=== PATIENT | female | born 1965 | race Caucasian/White ===

== ENCOUNTER 2018-06-22 12:53 | Emergency (ER) | payer OTHER ==
[~2018-06-22] VITALS: Ht 157.5 cm; Wt 79.4 kg
[~2018-06-22 12:53] MED LIST: LISINOPRIL10 MG PO; METOPROLOL; METOPROLOL SUCC25 MG PO; TRAMADOL; ULTRAM50 MG PO; XANAX XR1 MG PO; ZESTORETIC 20-1 EACH PO
[2018-06-22] MEDS ORDERED: LORAZEPAM1 MG PO (13:03)
[2018-06-22] MEDS ORDERED: TIZANIDINE HCL4 MG PO (13:03)
[2018-06-22] MEDS ORDERED: LISINOPRIL-HCT1 EAC1 PO (13:03)
[2018-06-22] MEDS ORDERED: OXYCODONE-ACET1 EAC3 PO (13:03)
[2018-06-22] MEDS ORDERED: GABAPENTIN600 MG PO (13:03)
[2018-06-22] MEDS ORDERED: METOCLOPRAMIDE HCL 10 MG/2ML VIAL IM ONE ×2 (13:15→14:00)
[2018-06-22] MEDS ORDERED: KETOROLAC TROMETHAMINE 60 MG/2 ML VIAL IM ONE ×2 (13:15→14:00)
[2018-06-22] MEDS ORDERED: SODIUM CHLORIDE 0.9% 1000ML 1,000 ML IV SCH (13:15)
[2018-06-22] MEDS ORDERED: KETOROLAC TROMETHAMINE 30 MG/ML VIAL IV ONE (14:00)
[2018-06-22] MEDS ORDERED: METOCLOPRAMIDE HCL 10 MG/2ML VIAL IV ONE (14:00)
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
== END 2018-06-22 14:40 | disposition home or self-care (01) ==
LOC: ER 12:53
DX: R51 Headache (principal); I10 Essential (primary) hypertension; M79.7 Fibromyalgia
CPT/HCPCS: 70450; 99283; J1885; J2765

== ENCOUNTER 2018-08-19 02:44 | Emergency (ER) | payer OTHER ==
[~2018-08-19] VITALS: Ht 157.5 cm; Wt 79.4 kg
[~2018-08-19 02:44] MED LIST changes: +GABAPENTIN600 MG PO; +LISINOPRIL-HCT1 EAC1 PO; +LORAZEPAM1 MG PO; +OXYCODONE-ACET1 EAC3 PO; +TIZANIDINE HCL4 MG PO
--- OUTSIDE RECORDS SUMMARY | 2018-08-19 02:47 | XMS REPORT | Clinical Summary ---
Author Author [facility] Organization [facility] Address Unknown Phone Unavailable Care Team Providers Care Lead Tinner Name Role Phone PCP Unavailable Allergies No Known Allergies Current Medications Prescription Sig. Disp. Refills Start End Date Status Date lisinopril (ZESTRIL) 40 Take 1 tablet by mouth 30 tablet 1 10/28/19 Active mg tabletIndications: daily. 15 Bipolar disorder NIFEdipine (PROCARDIA XL) Take 1 tablet by mouth 30 tablet 1 10/28/19 Active 30 mg extended release daily. 15 tabletIndications: Bipolar disorder haloperidol (HALDOL) 2 mg Take 1 tablet by mouth 30 tablet 2 03/21/20 Active tabletIndications: daily as needed (for 17 Bipolar disorder, in full worsening symptoms.). remission, most recent episode manic haloperidol decanoate 0.25 ml IM every 6 0.25 mL 4 03/20/20 Active (HALDOL DECANOATE) 100 weeks.. 18 mg/mL injectionIndications: Bipolar disorder, in full remission, most recent episode manic haloperidol decanoate 0.25 ml IM every 6 0.25 mL 4 05/02/20 11/14/19 Discontin (HALDOL DECANOATE) 100 weeks.. 17 18 ued mg/mL injectionIndications: Bipolar disorder, in full remission, most recent episode manic haloperidol decanoate 0.25 ml IM every 6 0.25 mL 4 11/14/19 03/20/20 Discontin (HALDOL DECANOATE) 100 weeks.. 18 18 ued mg/mL injectionIndications: Bipolar disorder, in full remission, most recent episode manic Active Problems Problem Noted Date Bipolar disorder 05/12/2015 Encounters Date Type Specialty Care Team Description 07/25/2018 Nurse Only Psychiatry Milli Varner RN Psychiatric disorder (Primary Dx) 06/12/2018 Office Visit Psychiatry Rayshawn Natarajan MD Bipolar disorder, in full remission, most recent episode manic (Primary Dx); Dietary counseling for Above / Below Normal BMI; Exercise counseling for Above Normal BMI Only! 05/02/2018 Nurse Only Psychiatry Rayshawn Natarajan MD Psychiatric problem Julia CherylJAME FlowersN (Primary Dx) 03/20/2018 Office Visit Psychiatry Rayshawn Natarajan MD Bipolar disorder, in full remission, most recent episode manic (Primary Dx); Opioid use disorder, mild, abuse; Mild benzodiazepine use disorder 02/06/2018 Office Visit Psychiatry Rayshawn Natarajan MD Bipolar disorder, in full Salmeron, Ladan Sage MD remission, most recent episode manic (Primary Dx) 12/26/2017 Hospital Lab Rayshawn Natarajan MD Bipolar disorder, in full Encounter remission, most recent episode manic; Hypertriglyceridemia; Type 2 diabetes mellitus without complication, without long-term current use of insulin 12/26/2017 Office Visit Psychiatry Rayshawn Natarajan MD Bipolar disorder, in full remission, most recent episode manic (Primary Dx) 11/14/2017 Office Visit Psychiatry Rayshawn Natarajan MD Hypertriglyceridemia (Primary Dx); Bipolar disorder, in full remission, most recent episode manic; Hyperglycemia; Type 2 diabetes mellitus without complication, without long-term current use of insulin 09/10/2017 Telephone Psychiatry Tomasa Pearce MD Abnormal Labs 09/09/2017 Nurse Only Psychiatry Tomasa Pearce MD Correa, Edgardo, RN 09/09/2017 Hospital Tomasa Pearce MD Encounter 09/09/2017 Hospital Lab Tomasa Pearce MD Encounter after 08/18/2017 Social History Tobacco Use Types Packs/Day Years Used Date Never Assessed Sex Assigned at Date Recorded Not on file Last Filed Vital Signs Vital Sign Reading Time Taken Blood Pressure 127/90 06/12/2018 11:20 AM CDT Pulse 71 06/12/2018 11:20 AM CDT Temperature 36.6 C (97.9 F) 06/12/2018 11:20 AM CDT Respiratory Rate 20 06/12/2018 11:20 AM CDT Oxygen Saturation 98% 06/12/2018 11:20 AM CDT Inhaled Oxygen - - Concentration Weight 85.3 kg (188 lb) 06/12/2018 11:20 AM CDT Height 157.5 cm (5' 2") 06/12/2018 11:20 AM CDT Body Mass Index 34.39 06/12/2018 11:20 AM CDT Plan of Treatment Date Type Specialty Care Team Description 09/04/2018 Office Visit Psychiatry Rayshawn Natarajan MD Injection [address] [place] [address] [phone] Health Maintenance Due Date Last Done Comments DM Foot Exam (Yearly) 01/31/1984 DM Retinal Exam (Yearly) 01/31/1984 Cervical Cancer Scrn (3 1987 Yrs) Breast Cancer Scrn 2006 (Yearly) DM Microalbumin Urine 10/28/2015 10/28/2014 Scrn (Yearly) Colorectal Cancer Scrn 01/31/2016 Annual (FIT/FOBT) Age 50 to 75 IMM Influenza Seasonal 07/21/2018Jul to December (>/=19 yrs) DM HGBA1C (Yearly) 12/26/2018 12/26/2017, 09/09/2017 Procedures Procedure Name Priority Date/Time Associated Diagnosis Comments HEMOGLOBIN A1C Routine 12/26/2017 Type 2 diabetes mellitus Results for this 9:25 AM CHILD DEVELOPMENT CONSULTANT without complication, procedure are in the without long-term current results section. use of insulin Bipolar disorder, in full remission, most recent episode manic Hypertriglyceridemia LIPID PROFILE Routine 12/26/2017 Bipolar disorder, in full Results for this 9:25 AM CHILD DEVELOPMENT CONSULTANT remission, most recent procedure are in the episode manic results section. Hypertriglyceridemia FREE T4 Routine 09/09/2017 Bipolar disorder, in full Results for this 12:25 PM CHILD DEVELOPMENT CONSULTANT remission, most recent procedure are in the episode manic results section. TSH Routine 09/09/2017 Bipolar disorder, in full Results for this 12:25 PM CHILD DEVELOPMENT CONSULTANT remission, most recent procedure are in the episode manic results section. COMPREHENSIVE METABOLIC Routine 09/09/2017 Bipolar disorder, in full Results for this PANEL(DBIL NOT INCLUDED) 12:25 PM CHILD DEVELOPMENT CONSULTANT remission, most recent procedure are in the episode manic results section. CBC/DIFF Routine 09/09/2017 Bipolar disorder, in full Results for this 12:25 PM CHILD DEVELOPMENT CONSULTANT remission, most recent procedure are in the episode manic results section. HEMOGLOBIN A1C Routine 09/09/2017 Bipolar disorder, in full Results for this 12:25 PM CHILD DEVELOPMENT CONSULTANT remission, most recent procedure are in the episode manic results section. LIPID PROFILE Routine 09/09/2017 Bipolar disorder, in full Results for this 12:25 PM CHILD DEVELOPMENT CONSULTANT remission, most recent procedure are in the episode manic results section. 12 LEAD EKG Routine 09/09/2017 Bipolar disorder, in full Results for this 11:23 AM CHILD DEVELOPMENT CONSULTANT remission, most recent procedure are in the episode manic results section. after 08/18/2017 Results * HEMOGLOBIN A1C (12/26/2017 9:25 AM) Only the most recent of 2 results within the time period is included. Hemoglobin A1c 6.1 4.3 - 6.1 % BT DIAGNOSTIC IMMUNOLOGY Est Average Gluc 128.4 mg/dL BT DIAGNOSTIC IMMUNOLOGY Specimen Blood Performing Organization Address [facility] Phone Number MISYS BT DIAGNOSTIC IMMUNOLOGY * LIPID PROFILE (12/26/2017 9:25 AM) Only the most recent of 2 results within the time period is included. Cholesterol 183 mg/dL BT MAIN-STATION 4 Comment: REFERENCE RANGE: Desirable: <200 mg/dL Borderline: 200-240 mg/dL High Risk: >240 mg/dL Triglyceride 413 (H) <150 mg/dL BT MAIN-STATION 4 Comment: REFERENCE RANGE: Normal: <150 mg/dL Borderline High: 150-199 mg/dL High: 200-499 mg/dL Very High: >vj=419 mg/dL HDL 31 mg/dL BT MAIN-STATION 4 Comment: Increased CHD risk: <40 mg/dL Decreased CHD risk: >60 mg/dL LDL Calculated LDL unreliable with mg/dL BT MAIN-STATION 4 levels of Triglyceride above 400 mg/dL Comment: REFERENCE RANGE: Optimal: <100 mg/dL Near Optimal: 100-129 mg/dL Borderline High: 130-159 mg/dL High: 160-189 mg/dL Very High: >uv=607 mg/dL Specimen Blood Performing Organization Address [facility] Phone Number MISYS BT MAIN-STATION 4 * COMPREHENSIVE METABOLIC PANEL(DBIL NOT INCLUDED) (09/09/2017 12:25 PM) Albumin 3.7 3.4 - 5.0 g/dL BT OUTPATIENT DRAW 2 Calcium 8.4 (L) 8.50 - 10.20 mg/dL BT OUTPATIENT DRAW 2 CO2 25.4 21 - 32 mmol/L BT OUTPATIENT DRAW 2 Chloride 105 98 - 107 mmol/L BT OUTPATIENT DRAW 2 Creatinine 0.75 0.60 - 1.30 mg/dL BT OUTPATIENT DRAW 2 Glucose 102 (H) 70 - 99 mg/dL BT OUTPATIENT DRAW 2 Alk Phos 113 45 - 117 U/L BT MAIN-STATION 3 Potassium 4.5 3.50 - 5.10 mmol/L BT OUTPATIENT DRAW 2 Sodium 138 136 - 145 mmol/L BT OUTPATIENT DRAW 2 ALT 50 12 - 78 U/L BT OUTPATIENT DRAW 2 AST 25 15 - 37 U/L BT OUTPATIENT DRAW 2 Urea Nitrogen 9 7 - 18 mg/dL BT OUTPATIENT DRAW 2 T Bilirubin 0.3 0.2 - 1.0 mg/dL BT MAIN-STATION 3 T Protein 6.5 6.4 - 8.2 g/dL BT MAIN-STATION 3 GFR, Estimated >60 mL/min/1.73 m2 BT OUTPATIENT DRAW 2 GFR, Estim, Afr-Am >60 mL/min/1.73 m2 BT OUTPATIENT DRAW 2 Anion Gap 7.6 BT OUTPATIENT DRAW 2 Specimen Blood Performing Organization Address [facility] Phone Number MISYS BT OUTPATIENT DRAW 2 BT MAIN-STATION 3 * TSH (09/09/2017 12:25 PM) TSH 0.89 0.36 - 3.74 uIU/mL BT MAIN-STATION 3 Specimen Blood Performing Organization Address [facility] Phone Number MISYS BT MAIN-STATION 3 * FREE T4 (09/09/2017 12:25 PM) Free T4 1.13 0.89 - 1.76 ng/dl BT MAIN-STATION 4 Specimen Blood Performing Organization Address [facility] Phone Number MISYS BT MAIN-STATION 4 * CBC/DIFF (09/09/2017 12:25 PM) WBC 9.5 4.5 - 11.0 K/uL BT MAIN-STATION 2 RBC 4.16 (L) 4.20 - 5.40 M/uL BT MAIN-STATION 2 Hemoglobin 11.8 (L) 12.0 - 16.0 g/dL BT MAIN-STATION 2 Hematocrit 35.8 (L) 37.0 - 47.0 % BT MAIN-STATION 2 MCV 86 82 - 92 fL BT MAIN-STATION 2 MCH 28.4 27.0 - 32.0 pg BT MAIN-STATION 2 MCHC 33.0 32.0 - 36.0 g/dL BT MAIN-STATION 2 RDW 40.9 36.4 - 46.3 fL BT MAIN-STATION 2 Platelet 241 150 - 400 K/uL BT MAIN-STATION 2 Mean Platelet Volume 10.9 9.4 - 12.4 fL BT MAIN-STATION 2 Percent NRBC 0.0 BT MAIN-STATION 2 Absolute NRBC 0.00 BT MAIN-STATION 2 Neutrophil 60.4 34.0 - 70.0 % BT MAIN-STATION 2 Lymphocyte 30.3 20.0 - 50.0 % BT MAIN-STATION 2 Monocyte 6.3 5.0 - 12.0 % BT MAIN-STATION 2 Eosinophil 2.3 0.7 - 5.0 % BT MAIN-STATION 2 Basophil 0.4 0.1 - 1.2 % BT MAIN-STATION 2 Pct Immat Gran 0.3 0.0 - 0.5 BT MAIN-STATION 2 Neutrophil, Abs 5.72 1.56 - 6.13 K/uL BT MAIN-STATION 2 Lymphocyte, Abs 2.87 1.18 - 3.74 K/uL BT MAIN-STATION 2 Monocyte, Abs 0.60 (H) 0.24 - 0.36 K/uL BT MAIN-STATION 2 Eosinophil, Abs 0.22 0.04 - 0.36 K/uL BT MAIN-STATION 2 Basophil, Abs 0.04 0.01 - 0.08 K/uL BT MAIN-STATION 2 Absol Immat Gran 0.03 0.00 - 0.03 K/uL BT MAIN-STATION 2 Specimen Blood Performing Organization Address [facility] [place] Phone Number MISYS BT MAIN-STATION 2 * 12 LEAD EKG (09/09/2017 11:23 AM) 12 LEAD EKG FOR [facility] Test Date:2017-09-09 Pat Name: TANIYA Flood partment: Room: Gender: F Vice President Of Finance: [id number] :[id number] [id number] Requested By: Order Number: Boy hickman MD: Tomas Wang M.D. Measurements Intervals [place] Rate: 57 P:24 PA: 160 QRS: 37 QRSD: 93 T:49 QT: 427 QTc:418 Interpretive Statements SINUS BRADYCARDIA WARNING: DATA QUALITY MAY AFFECT INTERPRETATION Electronically Signed On 09-09-17 12:31:35 CHILD DEVELOPMENT CONSULTANT by Nasser Lakkis, M.D. Performing Organization Address City/State/Zipcode Phone Number SMS after 08/18/2017
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
--- OUTSIDE RECORDS SUMMARY | 2018-08-19 02:47 | XMS REPORT | Continuity of Care Document ---
Author Author [facility] Interface Address Unknown Phone Unavailable Problems Problem Status Onset Date Classification Date Reported Comments Source DX: M54.17=RADICULOPATHY, LUMBOSACRAL RE Active 06/26/2018 [facility] Pain in joints of left hand 12/17/2017 03/19/2018 [facility] [place] UNK Active 01/18/2016 [facility] Arthritis Resolved Problem 03/19/2018 [facility] [place] [place] Fibromyalgia Resolved Problem 03/19/2018 [facility] [place] [place] HTN (<span [id number]">Confirmed</span>) Resolved Problem 03/19/2018 [facility] [place], [facility] [place] Polyp colon<sup>1</sup> Resolved Problem 03/19/2018 10 years ago [facility] [place] [place] Pain in joints of right hand 03/19/2018 [facility] [place] Medial epicondylitis, left elbow 03/19/2018 [facility] [place] Pain in right knee 03/19/2018 [facility] [place] PERSONAL HISTORY OF COLONIC POLYPS Active [facility] RADICULOPATHY, LUMBOSACRAL REGION Active [facility] Medications Medication Details Route Status Patient Instructions Ordering Provider Order Date Source Sodium Chloride 0.154 MEQ/ML Injectable Solution 1,000 mL, Rate: 25 ml/hr, Infuse over: 40 hr, Route: IV, Dosing Weight 83.636 kg, Total Volume: 1,000, Start date: 01/20/16 8:29:00, Duration: 1 day, Stop date: 01/21/16 8:28:00 Inactive 01/20/2016 [facility] metoprolol 25 mg oral tablet, extended release 25 mg=1 tab, PO, Daily, # 30 tab, 0 Refill(s) Active 01/19/2016 [facility] Hydrochlorothiazide 12.5 MG / Lisinopril 20 MG Oral Tablet 1 tab, PO, Daily, # 30 tab, 0 Refill(s) Active 01/19/2016 [facility] Allergies, Adverse Reactions, Alerts Substance Category Reaction Severity Reaction type Status Date Reported Comments Source Immunizations Immunization Date Given Site Status Last Updated Comments Source Results Order Name Results Value Reference Range Date Interpretation Comments Source Spine cervical series DX Spine cervical series DX EXAM: XR CERVICAL SPINE 5 VIEWS EXAM: XR THORACIC SPINE 2 VIEWS DATE: 07/30/2018 12:08 PM CDT INDICATION: - M54.9 Dorsalgia, unspecified COMPARISON: CT cervical spine 10/26/2009 TECHNIQUE: AP, lateral, open-mouth odontoid, RPO and LPO radiographs of the cervical spine show from the skull base through C6-C7. AP and lateral radiographs of the thoracic spine. FINDINGS: Cervical spine: Vertebral body heights and alignment are preserved. There is mild disc height loss with small anterior osteophyte formation at C4-C5. Resolution of near foramina is limited by positioning. The bony neuroforamina are grossly patent. No prevertebral or paraspinous soft tissue abnormality is identified. Thoracic spine: There is mild levoconvex curvature centered at T10. Vertebral body heights are maintained. Mild multilevel degenerative disc disease. No soft tissue abnormality. IMPRESSION: 1. Mild cervical spondylosis at C4-C5. 2. Mild multilevel degenerative changes of the thoracic spine. 07/30/2018 - - This report was dictated by a Sales Representative Graphic Art/Fellow. I have personally reviewed the images as well as the Resident's interpretation and agree with the findings. Read by: Ang Tamayo MD Resident: Ang Tamayo MD Dictated Date/time: 07/30/18 14:26 Electronically Signed by: Srinivasa Malone MD 07/30/18 15:31 FINAL REPORT [facility] thoracic 3 views DX Spine thoracic 3 views DX EXAM: XR CERVICAL SPINE 5 VIEWS EXAM: XR THORACIC SPINE 2 VIEWS DATE: 07/30/2018 12:08 PM CDT INDICATION: - M54.9 Dorsalgia, unspecified COMPARISON: CT cervical spine 10/26/2009 TECHNIQUE: AP, lateral, open-mouth odontoid, RPO and LPO radiographs of the cervical spine show from the skull base through C6-C7. AP and lateral radiographs of the thoracic spine. FINDINGS: Cervical spine: Vertebral body heights and alignment are preserved. There is mild disc height loss with small anterior osteophyte formation at C4-C5. Resolution of near foramina is limited by positioning. The bony neuroforamina are grossly patent. No prevertebral or paraspinous soft tissue abnormality is identified. Thoracic spine: There is mild levoconvex curvature centered at T10. Vertebral body heights are maintained. Mild multilevel degenerative disc disease. No soft tissue abnormality. IMPRESSION: 1. Mild cervical spondylosis at C4-C5. 2. Mild multilevel degenerative changes of the thoracic spine. 07/30/2018 - - This report was dictated by a Sales Representative Graphic Art/Fellow. I have personally reviewed the images as well as the Resident's interpretation and agree with the findings. Read by: Ang Tamayo MD Resident: Ang Tamayo MD Dictated Date/time: 07/30/18 14:26 Electronically Signed by: Srinivasa Malone MD 07/30/18 15:31 FINAL REPORT [facility] Spine lumbar wo contrast MRI Spine lumbar wo contrast MRI Patient Name: ELAINE RAMIREZ : 1965; Age: 53 years y/o Female MR: [id number] Study: Spine lumbar wo contrast MRI 06/26/2018 9:22 PM CDT Clinical Indication: M54.17 Radiculopathy, lumbosacral region - .; Comparison: None TECHNIQUE: Multiplanar T1, T2, STIR weighted noncontrast MRI of the lumbar spine is performed on the 1.5 Lillian magnet. FINDINGS The conus medullaris is above L2/L3 disk space. The vertebral body height is well maintained. T10/T11: Negative evidence for central canal stenosis. No evidence of right neural foraminal stenosis. Negative evidence of left neural foraminal stenosis. T11/T12: Negative evidence for central canal stenosis. No evidence of right neural foraminal stenosis. Negative evidence of left neural foraminal stenosis. T12/L1: Negative evidence for central canal stenosis. No evidence of right neural foraminal stenosis. Negative evidence of left neural foraminal stenosis. L1/2: Negative evidence for central canal stenosis. No evidence of right neural foraminal stenosis. Negative evidence of left neural foraminal stenosis. L2/3: Negative evidence for central canal stenosis. No evidence of right neural foraminal stenosis. Negative evidence of left neural foraminal stenosis. L3/4: Borderline central canal stenosis with AP dimension of thecal sac of 10.6 mm primarily from trace bulge and epidural lipomatosis. Ligamentum flavum thickening. No evidence of right neural foraminal stenosis. Negative evidence of left neural foraminal stenosis. L4/5: Mild bulge. Facet arthropathy. Mild right neural foraminal stenosis. Mild left neural foraminal stenosis. L5/S1: Mild bulge with slight right lateral recess protrusion. Mild right neural foraminal stenosis. Mild left neural foraminal stenosis. Multiple cystic lesions within the kidneys most likely simple cyst not fully characterized. Paraspinal/retroperitoneal lymph nodes the largest conspicuous 1 short axis is 8 mm not pathologic by size criteria. These are not fully characterize. IMPRESSION: 1. Multilevel multifactorial spondylosis. See detailed level by level analysis in the findings. Note, the above analysis and nomenclature has been adapted from Lumbar disc nomenclature: version 2.0 Recommendations of the combined task forces of the [place] [employer], the [place] Society of Spine Radiology and the [place] Society of Neuroradiology, The Spine Journal 2014. SL: SRSTACEY 06/26/2018 - - Read by: Kye Campbell DO Dictated Date/time: 06/26/18 22:27 Electronically Signed by: Kye Campbell DO 06/26/18 22:41 FINAL REPORT [facility] Knee wo contrast MRI Knee wo contrast MRI EXAMINATION: MRI of the left knee without contrast HISTORY: M25.562 Pain in left knee; medial left knee pain x1 month; left knee medial meniscus tear; left knee effusion COMPARISON: Radiographs dated 12/11/2017 are reviewed. TECHNIQUE: Multiplanar, multisequence magnetic resonance imaging of the left knee is performed with an extremity coil without contrast. FINDINGS: Menisci: --Medial: There is a horizontal undersurface tear involving the body of the medial meniscus with superimposed intrameniscal degeneration within the posterior horn. --Lateral: The anterior horn, body, and posterior horn are intact. Ligaments: The cruciate ligaments are intact. The medial collateral ligament is intact with mild surrounding soft tissue edema. The lateral collateral ligament complex is intact Extensor mechanism: The extensor mechanism is intact. Muscles: There is normal signal intensity and muscle bulk of the musculature at the knee. Cartilage: There is no focal chondral defect. Bone: There is mild subchondral edema along the medial tibial rim, likely reactive. There are no acute fractures. There are no suspicious bone marrow replacing lesions. Soft tissues: There is a small knee effusion. There is no substantial Friedman's cyst. There is a small amount of multiloculated fluid within the semimembranosus-tibial collateral ligament bursa. IMPRESSION: 1. Horizontal undersurface tear involving the body of the left knee medial meniscus with superimposed intrameniscal degeneration within the posterior horn. 2. Intact left knee medial collateral ligament with surrounding soft tissue edema which may be seen in the setting of a low-grade (grade 1) medial collateral ligament sprain; however, this soft tissue edema may also be reactive in the setting of the adjacent meniscal pathology. 3. Mild subchondral edema along the left medial tibial rim, likely reactive. 4. Mild left knee semimembranosus-tibial collateral ligament bursitis. 5. Small left knee effusion. 6. Intact left knee cruciate ligaments without left knee chondral defect. 02/01/2018 - - Read by: Humphrey Montes MD Dictated Date/time: 02/03/18 08:06 Electronically Signed by: Humphrey Montes MD 02/03/18 08:33 FINAL REPORT [facility] Hand wo contrast MRI Hand wo contrast MRI EXAMINATION: MRI of the right hand without contrast HISTORY: R79.82 Elevated C-reactive protein (CRP), right hand arthralgia; right hand polyarthralgia x6 months COMPARISON: Radiographs dated 12/11/2017 are reviewed. TECHNIQUE: Multiplanar, multisequence magnetic resonance imaging of the right hand is performed with an extremity coil without contrast. FINDINGS: Soft tissue: The soft tissues including intrinsic musculature of the hand, neurovascular bundles, and tendons of the hand appear normal. There is no evidence of tenosynovitis. There is a small distal radioulnar joint effusion. A physiologic amount of joint fluid is noted within the remainder of the carpus and there is a physiologic amount of fluid within the metacarpophalangeal joints. There is no definite synovitis. Cartilage and Bone: There is no focal chondrosis identified. There are no foci of subchondral marrow edema or osteitis. There are no osseous erosions. There is no evidence of fracture, stress fracture, osteonecrosis, or osteomyelitis. IMPRESSION: 1. Nonspecific small distal radioulnar joint effusion of the right wrist. There is a physiologic amount of joint fluid within the remainder of the right carpus and within the metacarpophalangeal joints, but no definite synovitis on this noncontrast MRI examination. 2. Otherwise, no MR evidence of inflammatory arthropathy of the right hand. Specifically, there is no focal chondrosis, foci of subchondral marrow edema, osteitis, or osseous erosions, and there is no evidence of tenosynovitis. 02/01/2018 - - Read by: Humphrey Montes MD Dictated Date/time: 02/03/18 08:06 Electronically Signed by: Humphrey Montes MD 02/03/18 10:40 FINAL REPORT [facility] Hand 2 views Bilateral DX Hand 2 views Bilateral DX EXAM: XR BILATERAL HAND 2 VIEWS DATE: 12/11/2017 3:19 PM [employer] INDICATION: - arthritis COMPARISON: None TECHNIQUE: PA and lateral radiographs of the bilateral hands. FINDINGS: No acute fracture or malalignment is identified. There is mild narrowing of the PIP and DIP joints bilaterally worse along the small fingers bilaterally. MCP joints and intercarpal joints are essentially intact. No soft tissue abnormality is identified. IMPRESSION: 1. Narrowing of the PIP and DIP joints bilaterally. Findings are nonspecific for inflammatory arthritis. 12/11/2017 - - Read by: Natalie Kelly MD Dictated Date/time: 12/11/17 16:58 Electronically Signed by: Natalie Kelly MD 12/11/17 17:05 [facility]AL [facility]PORT [facility] Knee 1-2 Views Bilateral DX Knee 1-2 Views Bilateral DX EXAM: XR BILATERAL KNEE 2 VIEWS DATE: 12/11/2017 3:20 PM [employer] INDICATION: - arthritis COMPARISON: None TECHNIQUE: Standing AP and lateral radiographs of the bilateral knees FINDINGS: No fracture, dislocation or other acute bony abnormality is identified. Joint spaces are preserved bilaterally. There is no knee joint effusion on either side. No soft tissue abnormality is identified. IMPRESSION: Unremarkable radiographs of the bilateral knees. 12/11/2017 - - Read by: Natalie Kelly MD Dictated Date/time: 12/11/17 17:05 Electronically Signed by: Natalie Kelly MD 12/11/17 17:06 FINAL REPORT [facility] Elbow 3 views Bilateral DX Elbow 3 views Bilateral DX EXAM: XR BILATERAL ELBOW 3 VIEWS DATE: 12/11/2017 3:20 PM [employer] INDICATION: - arthritis COMPARISON: None TECHNIQUE: AP, lateral and oblique radiographs of the bilateral elbows FINDINGS: No acute fracture or malalignment is identified. There is no excessive joint fluid. No soft tissue abnormality is identified. IMPRESSION: No osseous or joint abnormality. 12/11/2017 - - Read by: Natalie Kelly MD Dictated Date/time: 12/11/17 17:06 Electronically Signed by: Natalie Kelly MD 12/11/17 17:06 FINAL REPORT [facility] Retroperitoneal Complete US Retroperitoneal Complete US EXAM: US RENAL DATE: 02/18/2017 11:40 AM CDT INDICATION: N18.1 Chronic kidney disease, stage 1 ADDITIONAL INFORMATION: None. COMPARISON: 04/04/2016 TECHNIQUE: Multiplanar grayscale and color Doppler ultrasound of the kidneys and urinary bladder. FINDINGS: Right kidney: Hydronephrosis: None. Size: 12.0 x 5.5 x 5.5 cm. 4 cystic lesions of varying complexity are again noted, measuring up to 3.8 cm. They appear to be minimally increased in size, but this is limited by differences in technique. Several hyperechoic foci are again noted, some of which may represent calcifications. Left kidney: Hydronephrosis: None. Size: 13.2 x 6.3 x 6.5 cm. 3 cystic lesions of varying are again noted, measuring up to 2.8 cm. These also appear to be minimally increased in size. Several hyperechoic foci are again noted. Bladder: Normal. Bilateral ureteral jets were visualized. IMPRESSION: Bilateral renal cysts of varying complexity which appear minimally increased in size since the prior study. Further evaluation with renal protocol CT or MR may be helpful to exclude any more solid components. Due to the presence of calcifications, CT is favored over MR. SL: [id number] 02/18/2017 - - Read by: Leandra Abdalla Dictated Date/time: 02/18/17 13:47 Electronically Signed by: Leandra Abdalla 02/18/17 13:58 FINAL REPORT [facility] Retroperitoneal Complete US Retroperitoneal Complete US EXAM: US RETROPERITONEAL COMPLETE DATE: 04/04/2016 11:44 AM CDT INDICATION: N28.1 Cyst of kidney, acquired ADDITIONAL INFORMATION: None. COMPARISON: None. TECHNIQUE: Multiplanar grayscale and color Doppler ultrasound images of the kidneys, aorta, IVC and urinary bladder. Note was made by the technologist that the exam was limited secondary to the patient's body habitus and secondary to bowel gas. DISCUSSION: Right kidney Hydronephrosis: None. Size: 12.4 x 5.6 x 6.0 cm Cortical Echogenicity: Increased. Parenchymal thickness and contour: Normal. Calculi: Tiny hyperechoic foci measuring 5 mm in maximal diameter are seen in the right mid kidney, likely small vascular calcifications or nonshadowing calculi. Cysts: Numerous simple and complex cysts are seen within the right kidney. The largest are as follows: 2.5 x 3.6 x 1.9 cm thinly septated anechoic thin-walled inferior pole cyst with hyperechoic foci within it and with no internal vascularity. 1.5 x 1.1 x 1.6 cm anechoic inferior pole thin-walled avascular cyst with a hyperechoic focus within it. 1.7 x 1.5 x 1.8 cm hypoechoic avascular lesion in the right mid renal cortex, likely a complex cyst. 2. 0.3 x 1.9 x 1.5 cm anechoic thin-walled avascular simple cyst. Masses: None. Left kidney Hydronephrosis: None. Size: 13.4 x 6.5 x 6.5 cm Cortical Echogenicity: Increased. Parenchymal thickness and contour: Normal. Calculi: Left mid renal 9 mm hyperechoic calculus with posterior acoustic shadowing.. Cysts: Simple and complex cysts are seen within the left kidney with the largest is follows: 2.6 x 2.0 x 2.1 cm anechoic avascular thin-walled simple cyst in the left mid kidney. 2.2 x 1.5 x 2.5 cm anechoic thin-walled avascular simple cyst in the left mid kidney renal sinus 1.4 x 1.4 x 1.8 cm thin-walled anechoic avascular cyst with a thin hyperechoic septation within it. Masses: None. Abdominal aorta:There is no sonographic evidence of aneurysm or of dissection. IVC: Normal. Bladder: No wall thickening, masses, or calculi are seen. Normal ureteral jets are seen confirming bilateral ureteral patency. IMPRESSION: 1. Numerous simple and complex cysts within both kidneys with differential diagnosis of polycystic kidney disease, acquired renal cystic disease, or multiple sporadic cysts. If not artery performed in the past, CT scanning or magnetic resonance imaging with and without contrast would be recommended for further characterization of the complex cysts within both kidneys described above. 2. Increased renal cortical echogenicity of both kidneys is most likely from underlying medical renal disease. 2. No abnormalities of the bladder are demonstrated. 04/04/2016 - - Read by: Izaiah Hamilton MD Dictated Date/time: 04/04/16 13:12 Electronically Signed by: Izaiah Hamilton MD 04/04/16 13:21 FINAL REPORT [facility] Vital Signs Vital Sign Value Date Comments Source Respitory Rate 17 01/20/2016 [facility] Systolic (mm Hg) 149 01/20/2016 [facility] Diastolic (mm Hg) 96 01/20/2016 [facility] Systolic (mm Hg) 150 01/20/2016 [facility] Diastolic (mm Hg) 100 01/20/2016 [facility] Respitory Rate 16 01/20/2016 [facility] Respitory Rate 14 01/20/2016 [facility] Systolic (mm Hg) 139 01/20/2016 [facility] Diastolic (mm Hg) 100 01/20/2016 [facility] Heart Rate 67 01/20/2016 [facility] BMI Calculated 33.72 01/19/2016 [facility] Weight 83.636 01/19/2016 [facility] Height 157.48 cm 01/19/2016 [facility] Encounters Location Location Details Encounter Type Encounter Number Reason For Visit Attending Provider ADM Date DC Date Status Source [facility] Bedded Outpatient [id number] Cm Aldridge 01/20/2016 01/20/2016 [facility] - [place] [facility] [id number] Malik Rodriguez 04/04/2016 04/05/2016 [facility] Out[facility] - [place] [facility] [id number] Godwin Young 02/18/2017 02/19/2017 [facility] [place] [facility] Outpatient Imaging - [place] Out[facility] Di[facility] Services [id number] Poli Rousseau 12/11/2017 12/12/2017 [facility] Outpatient [facility] - [place] [facility] [id number] Poli Candelariabenjamín 02/01/2018 02/02/2018 [facility] Procedures Procedure Code Date Perfomer Comments Source
[2018-08-19] MEDS ORDERED: LORAZEPAM INJ 2 MG/ML VIAL IV ONE (03:15)
[2018-08-19] MEDS ORDERED: LORAZEPAM INJ 2 MG/ML VIAL ONE (03:16)
[2018-08-19 03:19] LABS: BASOPHILS % 0.3 % (0.0-1.0); EOSINOPHILS # (AUTO) 0.3 (0.0-0.4); EOSINOPHILS % 1.9 % (0.0-6.0); HEMATOCRIT 36.9 % (34.2-44.1); HEMOGLOBIN 12.5 g/dL (12.0-16.0); LYMPHOCYTES # (AUTO) 3.8 (1.0-3.2); LYMPHOCYTES % 28.5 % (18.0-39.1); MEAN CORPUSCULAR HEMOGLOBIN 28.3 pg (28-32); MEAN CORPUSCULAR HGB CONC 33.9 g/dL (31-35); MEAN CORPUSCULAR VOLUME 83.5 fL (81-99); MONOCYTES # (AUTO) 0.8 (0.2-0.8); MONOCYTES % 6.1 % (4.4-11.3); NEUTROPHILS # (AUTO) 8.3 (2.1-6.9); NEUTROPHILS % 62.9 % (38.7-80.0); PLATELET COUNT 239 x10e3/uL (140-360); RED BLOOD COUNT 4.42 x10e6/uL (3.6-5.1); RED CELL DISTRIBUTION WIDTH 12.8 % (11.7-14.4)
[2018-08-19 03:32] LABS: INR 0.77; PROTHROMBIN TIME 11.5 seconds (11.9-14.5)
[2018-08-19 03:33] LABS: ALANINE AMINOTRANSFERASE 57 IU/L (0-55); ALBUMIN 4.2 g/dL (3.5-5.0); ALBUMIN/GLOBULIN RATIO 1.4 (0.8-2.0); ALKALINE PHOSPHATASE 106 IU/L (40-150); ANION GAP 14.1 mmol/L (8-16); BLOOD UREA NITROGEN 16 mg/dL (7-26); BUN/CREATININE RATIO 19 (6-25); CALCIUM 10.2 mg/dL (8.4-10.2); CARBON DIOXIDE 25 mmol/L (22-29); CHLORIDE 96 mmol/L (98-107); CLARITY,URINE CLEAR (CLEAR); COLOR,URINE YELLOW (YELLOW); CREATINE KINASE 378 IU/L (29-168); CREATININE, SERUM 0.86 mg/dL (0.57-1.11); EST GLOMERULAR FILTRATION RATE > 60 ML/MIN (60-); GLUCOSE 102 mg/dL (74-118); LEUKOCYTE ESTERASE ,URINE NEGATIVE (NEGATIVE); PARTIAL THROMBOPLASTIN TIME 36.5 seconds (23.8-35.5); POTASSIUM 4.1 mmol/L (3.5-5.1); SODIUM 131 mmol/L (136-145)
[2018-08-19 03:34] LABS: AMPHETAMINES SCREEN,URINE NEGATIVE (NEGATIVE); BENZODIAZEPINES SCREEN,URINE NEGATIVE (NEGATIVE); KETONES,URINE NEGATIVE (NEGATIVE); NITRITE,URINE NEGATIVE (NEGATIVE); PHENCYCLIDINE SCREEN,URINE NEGATIVE (NEGATIVE); PROTEIN,URINE DIPSTICK NEGATIVE (NEGATIVE)
[2018-08-19 03:35] LABS: BILIRUBIN,URINE NEGATIVE (NEGATIVE); URINE UROBILINOGEN 0.2 mg/dL (0.2 - 1)
--- NOTE | 2018-08-19 03:42 | Diagnostic Imaging Report ---
EXAM: CHEST 2 VIEWS, PA and lateral INDICATION: Left chest pain COMPARISON: None FINDINGS: LINES/TUBES: None LUNGS: No consolidations or edema. PLEURA: No effusions or pneumothorax. HEART AND MEDIASTINUM: Normal size and contour. BONES AND SOFT TISSUES: No acute findings. IMPRESSION: No acute thoracic abnormality. Signed by: Dr. Hermelinda Mendoza M.D. on 08/19/2018 3:39 AM
[2018-08-19] MEDS ORDERED: SODIUM CHLORIDE 0.9% 1000ML 1,000 ML IV ONE (05:00)
[2018-08-19] MEDS ORDERED: SODIUM CHLORIDE 0.9% 1000ML 1,000 ML ONE (05:02)
[2018-08-19 05:55] LABS: BACTERIA,URINE RARE /HPF; EPITHELIAL CELLS,URINE RARE /LPF; RBC,URINE 0-5 /HPF (0-5); TRANSITIONAL EPI CELLS,URINE RARE; WBC,URINE (MAN) 0-5 /HPF (0-5)
[2018-08-19 07:05] LABS: CREATINE KINASE MB 8.2 ng/mL (0-5.0)
[2018-08-19 07:22] VITALS: BP 178/88
== END 2018-08-19 07:39 | disposition home or self-care (01) ==
LOC: ER 02:44
DX: R07.89 Other chest pain (principal); F41.1 Generalized anxiety disorder; I10 Essential (primary) hypertension; M79.7 Fibromyalgia
CPT/HCPCS: 36415; 71046; 80053; 80307; 81001; 82550; 82553; 84443; 84484; 85025; 85610; 85730; 93005; 96374; 99284; J2060; J7030

== ENCOUNTER 2020-09-22 07:41 | Emergency (ER) | payer OTHER ==
[~2020-09-22] VITALS: Ht 157.5 cm; Wt 61.2 kg
--- OUTSIDE RECORDS SUMMARY | 2020-09-22 07:45 | XMS REPORT | Clinical Summary ---
Author Author [facility] ict Organization [facility] ict Address Unknown Phone Unavailable Care Team Providers Care [facility] Name Role Phone PCP Unavailable Allergies No Known Allergies Medications End Date Status Medication Sig Dispensed Refills Start Date Active lisinopril (ZESTRIL) 40 Take 1 tablet 30 tablet 1 mg tabletIndications: by mouth 5 Bipolar disorder daily. Active NIFEdipine (PROCARDIA XL) Take 1 tablet 30 tablet 1 30 mg extended release by mouth 5 tabletIndications: daily. Bipolar disorder Active haloperidol decanoate 0.25 ml IM 0.25 mL 4 07/23 (HALDOL DECANOATE) 100 every 4 9 mg/mL weeks.. injectionIndications: Bipolar disorder, in full remission, most recent episode manic Active haloperidoL (HALDOL) 5 mg Take 1 tablet 30 tablet 5 tabletIndications: by mouth 0 Bipolar disorder, in full daily as remission, most recent needed (for episode manic worsening symptoms.). 05/12/2020 Discontinued (Reorder) haloperidol (HALDOL) 5 mg Take 1 tablet 30 tablet 5 tabletIndications: by mouth 9 Bipolar disorder, in full daily as remission, most recent needed (for episode manic worsening symptoms.). Active Problems Problem Noted Date Bipolar disorder 05/12/2015 Encounters Care Team Description Date Type Specialty Rayshawn Natarajan MD Bipolar disorder in full remission, most recent episode unspecified type (Primary Dx); Hyperglycemia 07/07/2020 Telephonic Psychiatry Encounter Everett Roque RN Psychiatric diagnosis (Primary Dx) 05/20/2020 Nurse Only Psychiatry Rayshawn Natarajan MD Bipolar disorder, in full remission, mos t recent episode manic 05/12/2020 Telephonic Psychiatry Encounter Rayshawn Natarajan MD Medications 03/16/2020 Refill Psychiatry Rayshawn Natarajan MD Khoaja, Mohammad A, MD Bipolar disorder in full remission, most recent episode unspecified type (Primary Dx) 11/12/2019 Office Visit Psychiatry Rayshawn Natarajan MD Yerramsetti, Ashok P, [facility] Bipolar disorder, in full remission, mos t recent episode manic 10/15/2019 Office Visit Psychiatry after 09/22/2019 Social History Date Tobacco Use Types Packs/Day Years Used Current Every Day Smoker 0.5 Smokeless Tobacco: Never Used Sex Assigned at Date Recorded Not on file Industry Job Start Date Occupation Not on file Not on file Not on file Travel End Travel History Travel Start No recent travel history available. Last Filed Vital Signs Reading Time Taken Comments Vital Sign 126/83 11/12/2019 9:46 AM [employer] Blood Pressure 69 11/12/2019 9:46 AM [employer] Pulse 36.9 C (98.4 F) 11/12/2019 9:46 AM [employer] Temperature 20 11/12/2019 9:46 AM [employer] Respiratory Rate 100% 11/12/2019 9:46 AM [employer] Oxygen Saturation - - Inhaled Oxygen Concentration 63.9 kg (140 lb 12.8 oz) 11/12/2019 9:46 AM [employer] Weight 157.5 cm (5' 2") 11/12/2019 9:46 AM [employer] Height 25.75 11/12/2019 9:46 AM [employer] Body Mass Index Plan of Treatment Health Maintenance Due Date Last Done Comments HPV Cervical Cancer Scrn 01/31/1996 Pap Cervical Cancer Scrn 01/31/1996 Breast Cancer Scrn 2006 (Yearly) Colorectal Cancer Scrn 01/31/2016 Annual (FIT/FOBT) Age 50 to 75 IMM Influenza Seasonal 07/21/2020Jul to December (>/= 19 yrs) Results Not on fileafter 09/22/2019 Insurance Type Payer Benefit Subscriber ID Effective Phone Address Plan / Dates Group [facility] [employer] xxxxxxxxx 2019-P [phone] [id number] [place] [address]
--- OUTSIDE RECORDS SUMMARY | 2020-09-22 07:46 | XMS REPORT | Continuity of Care Document ---
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 size and configuration. No hydrocephalus. Extra-axial space: No abnorma lities. Parenchyma: No abnormal densities. No masses, hemorrhage, or acute or chronic cortical based vascular insults.. Sellar/suprasellar regio n: No abnormalities. Craniocervical junction: Patent foramen magnum. No Chiari one malformation. Incidental findings: None. Impression: No intracranial abnormalities. Signed by: Dr. Brigitte Nelson M.D. on 06/22/20 18 2:10 PM Dictated By: BRIGITTE LYNNE MD Electronically Leni d By: BRIGITTE LYNNE MD on 06/22/181409 Transcribed By: MOOK on 0 06/22/181409 COPY TO: CECIL MCGARRY MD [[facility]] CULTURE, URINE, [id number] 00:00:00* Test Item Value Reference Range Interpretation Comments CULTURE (test code = CULTURE) See Comment A CULTURE, URINE, ROUTINE MICRO NUMBER: [id number] TEST STATUS: FINAL SPECIMEN SOURCE: URINE SPECIMEN QUALITY: ADEQUATE RESULT: Greater than 100,000 CFU/mL of Klebsiella pneumoniae COMMENT: Additional organism(s) less than 10,000 CFU/mL isolated. These organisms, commonly found on external and internal genitalia, are considered colonizers. No further testing performed. K.pneumoniae INT DIEUDONNE AMOX/CLAVULANATE S <=2 AMPICILLIN R >=32 AMP/SULBACTAM S 4 CEFAZOLIN NR <=4 2 CEFEPIME S <=1 CEFTRIAXONE S <=1 CIPROFLOXACIN S <=0.25 GENTAMICIN S <=1 IMIPENEM S <=0.25 LEVOFLOXACIN S <=0.12 NITROFURANTOIN R 128 PIP/TAZOBACTAM S <=4 TOBRAMYCIN S <=1 TRIMETHOPRIM/SULFA S <=20S=Susceptible I=Intermediate R=Resistant * = Not TestedNR = Not Reported NN = See Therapy CommentsTHERAPY COMMENTS Note 1: For infections other than uncomplicated UTI caused by E. coli, K. pneumoniae or P. mirabilis: Cefazolin is resistant if DIEUDONNE > or = 8 mcg/mL. (Distinguishing susceptible versus intermediate for isolates with DIEUDONNE < or = 4 mcg/mL requires additional testing.) Note 2: For uncomplicated UTI caused by E. coli, K. pneumoniae or P. mirabilis: Cefazolin is susceptible if DIEUDONNE <32 mcg/mL and predicts susceptible to the oral agents cefaclor, cefdinir, cefpodoxime, cefprozil, cefuroxime, cephalexin and loracarbef. [facility][O] Urine Dipstick (In Office)2018-03-05 09:39:00 * Test Item Value Reference Range Interpretation Comments LEUKOCYTES (test code = LEUKOCYTES) trace NITRITE; Normal (test code = 45432-9) neg N UROBILINOGEN; Normal (test code = 62642-1) neg N PROTEIN (test code = 94852-1) trace pH (test code = pH) 6 URINE BLOOD (test code = 16751-5) trace SPECIFIC GRAVITY (test code = 2965-2) 1.020 KETONES; Normal (test code = 54911-0) neg N BILIRUBIN; Normal (test code = 84320-6) neg N GLUCOSE; Normal (test code = 1547-9) neg N COLOR URINE (test code = 5778-6) cloudy [facility][] URINALYSIS [id number] 00:00:00* Test Item Value Reference Range Interpretation Comments COLOR; Normal (test code = 5778-6) DARK YELLOW YELLOW N APPEARANCE (test code = APPEARANCE) HAZY CLEAR A SPECIFIC GRAVITY; Normal (test code = 2965-2) 1.018 1.001-1. 035 N PH; Abnormal (test code = 2756-5) > OR = 8.5 5.0-8.0 A GLUCOSE; Normal (test code = 1547-9) NEGATIVE NEGATIVE N BILIRUBIN; Normal (test code = 03674-5) NEGATIVE NEGATIVE N KETONES; Normal (test code = 26005-6) NEGATIVE NEGATIVE N OCCULT BLOOD; Normal (test code = 73101-3) NEGATIVE NEGATIVE N PROTEIN; Abnormal (test code = 72268-1) 2+ NEGATIVE A NITRITE; Normal (test code = 66482-8) NEGATIVE NEGATIVE N LEUKOCYTE ESTERASE (test code = LEUKOCYTE ESTERASE) 3+ NE GATIVE A WBC; Abnormal (test code = 6690-2) 40-60 < OR = 5 A RBC; Normal (test code = 789-8) 0-2 < OR = 2 N SQUAMOUS EPITHELIAL CELLS (test code = 81310-6) 0-5 < OR = 5 BACTERIA; Abnormal (test code = 630-4) MODERATE NONE SEEN A TRIPLE PHOSPHATE CRYSTALS; Normal (test code = 5814-9) FEW NONE OR FEW N HYALINE CAST; Normal (test code = 26407-9) NONE SEEN NONE SEEN N [facility]] CULTURE, URINE, [id number] 00:00:00* Test Item Value Reference Range Interpretation Comments CULTURE (test code = CULTURE) See Comment A CULTURE, URINE, ROUTINE MICRO NUMBER: [id number] TEST STATUS: FINAL SPECIMEN SOURCE: URINE SPECIMEN QUALITY: ADEQUATE RESULT: Greater than 100,000 CFU/mL of Proteus mirabilis This organism may show imipenem resistance by mechanisms other than a carbapenemase. P.mirabilis INT DIEUDONNE AMOX/CLAVULANATE S 8 AMPICILLIN R >=32 AMP/SULBACTAM S 8 CEFAZOLIN R 8 1 CEFEPIME S <=1 CEFTRIAXONE S <=1 CIPROFLOXACIN S <=0.25 GENTAMICIN S <=1 IMIPENEM I 2 LEVOFLOXACIN S <=0.12 NITROFURANTOIN R 128 PIP/TAZOBACTAM S <=4 TOBRAMYCIN S <=1 TRIMETHOPRIM/SULFA R 80S=Susceptible I=Intermediate R=Resistant * = Not TestedNR = Not Reported NN = See Therapy CommentsTHERAPY COMMENTS Note 1: For uncomplicated UTI caused by E. coli, K. pneumoniae or P. mirabilis: Cefazolin is susceptible if DIEUDONNE <32 mcg/mL and predicts susceptible to the oral agents cefaclor, cefdinir, cefpodoxime, cefprozil, cefuroxime, cephalexin and loracarbef. [facility] Hand wo contrast [id number] 09:30:00 EXAMINATION: MRI of the right hand without contrastHISTORY: R79.82 Elevated C- reactive protein (CRP), right hand arthralgia;right hand polyarthralgia x6 month sCOMPARISON: Radiographs dated 12/11/2017 are reviewed.TECHNIQUE: Multiplanar, m ultisequence magnetic resonance imaging of the righthand is performed with an ex tremity coil without contrast.FINDINGS:Soft tissue: The soft tissues including i ntrinsic musculature of the hand,neurovascular bundles, and tendons of the hand appear normal. There is noevidence of tenosynovitis. There is a small distal rad ioulnar joint effusion. Aphysiologic amount of joint fluid is noted within the r emainder of the carpusand there is a physiologic amount of fluid within the meta carpophalangealjoints. There is no definite synovitis.Cartilage and Bone: There is no focal chondrosis identified. There are no fociof subchondral marrow edema or osteitis. There are no osseous erosions. Thereis no evidence of fracture, str ess fracture, osteonecrosis, or osteomyelitis. IMPRESSION:1. Nonspecific small d istal radioulnar joint effusion of the right wrist. Thereis a physiologic amount of joint fluid within the remainder of the right carpusand within the metacarpo phalangeal joints, but no definite synovitis on thisnoncontrast MRI examination. 2. Otherwise, no MR evidence of inflammatory arthropathy of the right hand.Speci fically, there is no focal chondrosis, foci of subchondral marrow edema,osteitis , or osseous erosions, and there is no evidence of tenosynovitis.--Read by: Humphrey Stuart MDDictated Date/time: 02/03/18 08:06Electronically Signed by: Humphrey Montes MD 02/03/1810:40FINAL REPORTUnSan Juan Hospital PhysiciansXRAY Hand AP lateral Bilateral [id number] 15:26:00EXAM: XR BILATERAL HAND 2 VIEWSDATE: 12/11/2017 3:19 PM CSTINDICATION: - arthrit isCOMPARISON: NoneTECHNIQUE: PA and lateral radiographs of the bilateral hands.F INDINGS: No acute fracture or malalignment is identified. There is mildnarrowing of the PIP and DIP joints bilaterally worse along the small fingersbilaterally. MCP joints and intercarpal joints are essentially intact.No soft tissue abnorma lity is identified.IMPRESSION:1. Narrowing of the PIP and DIP joints bilaterally . Findings are nonspecificfor inflammatory arthritis.--Read by: Natalie Kelly MDDictated Date/time: 12/11/17 16:58Electronically Signed by: Dale Kelly MD 12/11/1816:05FINAL REPORTUnSan Juan Hospital PhysiciansXRAY Knee 1-2 Views Bilateral [id number] 15:26:00EXAM: XR BILATERAL KNEE 2 VIEWSDATE: 12/11/2017 3:20 PM CSTINDICATION: - arthrit isCOMPARISON: NoneTECHNIQUE: Standing AP and lateral radiographs of the bilatera l kneesFINDINGS: No fracture, dislocation or other acute bony abnormality solomon dentified. Joint spaces are preserved bilaterally.There is no knee joint effusio n on either side. No soft tissue abnormality isidentified.IMPRESSION: Unremarkab le radiographs of the bilateral knees.--Read by: Natalie Kelly MDDictat ed Date/time: 12/11/17 17:05Electronically Signed by: Natalie Kelly MD 12/11/1816:06FINAL REPORTUnSan Juan Hospital PhysiciansXRAY Elbow 3 views Bilateral [id number] 15:26:00EXAM: XR BILATERAL ELBOW 3 VIEWSDATE: 12/11/2017 3:20 PM CSTINDICATION: - arthritisCOMPARISON: NoneTECHNIQUE: AP, lateral and oblique radiographs of the bilateral elbowsFINDINGS: No acute fracture or malalignment is identified. There is no excessive joint fluid. No soft tissue abnormality is identified.IMPRESSION: No osseous or joint abnormality.--Read by: Natalie Kelly MDDictated Da te/time: 12/11/17 17:06Electronically Signed by: Natalie Kelly MD 12/11/1816:06FINAL REPORTUnSan Juan Hospital [facility]] SED RATE BY BUDDY [id number] 14:25:00* Test Item Value Reference Range Interpretation Comments SED RATE BY MODIFIED JAZMÍNREN (test code = SED RATE BY BUDDY CARPENTER) 9 mm/h < OR = 30 N [facility]] CBC (INCLUDES DIFF/PLT)2017-12-11 14:25:00* Test Item Value Reference Range Interpretation Comments WHITE BLOOD CELL COUNT (test code = WHITE BLOOD CELL COUNT) 7.5 {Thousand/u} 3.8-10.8 N RED BLOOD CELL COUNT (test code = RED BLOOD CELL COUNT) 4.53 {Million/uL} 3.80-5.10 N HEMOGLOBIN; Normal (test code = 83408-4) 12.3 g/dl 11.7-15.5 N HEMATOCRIT; Normal (test code = 4544-3) 36.3 % 35.0-45.0 N MCV; Normal (test code = 787-2) 80.1 fL 80.0-100.0 N MCHC; Normal (test code = 67261-6) 33.9 g/dl 32.0-36.0 N RDW; Normal (test code = 788-0) 12.9 % 11.0-15.0 N PLATELET COUNT; Normal (test code = 777-3) 297 {Thousand/u} 140-400 N MPV; Normal (test code = 96286-8) 10.3 fL 7.5-12.5 N ABSOLUTE NEUTROPHILS (test code = ABSOLUTE NEUTROPHILS) 4500 {cells/uL} 2367-3140 N ABSOLUTE LYMPHOCYTES (test code = ABSOLUTE LYMPHOCYTES) 2453 {cells/uL} 850-3900 N ABSOLUTE MONOCYTES (test code = ABSOLUTE MONOCYTES) 443 {cells/uL} 200-950 N ABSOLUTE EOSINOPHILS (test code = ABSOLUTE EOSINOPHILS) 83 {cells/u L} 15-500 N ABSOLUTE BASOPHILS (test code = ABSOLUTE BASOPHILS) 23 {cells/uL} 0 -200 N NEUTROPHILS (test code = NEUTROPHILS) 60 % N LYMPHOCYTES (test code = LYMPHOCYTES) 32.7 % N MONOCYTES; Normal (test code = 31504-6) 5.9 % N EOSINOPHILS; Normal (test code = 76290-5) 1.1 % N BASOPHILS; Normal (test code = 23635-8) 0.3 % N [facility][] CYCLIC CITRULLINATED PEPTIDE (CCP) AB (IGG) 2017-12-11 14:25:00* Test Item Value Reference Range Interpretation Comments CYCLIC CITRULLINATED PEPTIDE (CCP) AB (I GG) (test code = CYCLIC CITRULLINATED PEPTIDE (CCP) AB (IGG)) <16 N Referenc e RangeNegative: <20Weak Positive: 20-39Moderate Positive: 40-59Strong Positive: >59 [facility]] RHEUMATOID [id number] 14:25:00* Test Item Value Reference Range Interpretation Comments RHEUMATOID FACTOR (test code = RHEUMATOID FACTOR) <14 <14 N [facility]] C-REACTIVE [id number] 14:25:00* Test Item Value Reference Range Interpretation Comments C-REACTIVE PROTEIN (test code = C-REACTIVE PROTEIN) 11.6 mg/L <8 .0 [facility][] HEPATITIS B SURFACE ANTIGEN W/REFL CONFIRM 2017-12-11 14:25:00* Test Item Value Reference Range Interpretation Comments HEPATITIS B SURFACE ANTIGEN; Normal (test code = 5195-3) NON -REACTIVE NON-REACTIVE N [facility]] HEPATITIS C [id number] 14:25:00* Test Item Value Reference Range Interpretation Comments HEPATITIS C ANTIBODY; Normal (test code = 52454-4) NON-REACTIVE NON -REACTIVE N SIGNAL TO CUT-OFF (test code = SIGNAL TO CUT-OFF) 0.00 <1.0 0 N [facility]] LIPID [id number] 09:05:00* Test Item Value Reference Range Interpretation Comments CHOLESTEROL, TOTAL; Above High Threshold (test code = 2093-3) 201 m g/dl <200 HDL CHOLESTEROL; Below Low Threshold (test code = 2085-9) 37 mg/dl >50 TRIGLYCERIDES; Above High Threshold (test code = 2571-8) 404 mg/dl <150 LDL-CHOLESTEROL (test code = 49931-3) See Comment LDL cholesterol not calculated. Triglyceride levelsgreater than 400 mg/dL invalidate calculated LDL results. Reference range: <100 Desirable range <100 mg/dL for patients with CHD ordiabetes and <70 mg/dL for diabetic patients withknown heart disease. LDL-C is now calculated using the Buddy-Lee calculation, which is a validated novel method providing better accuracy than the Friedewald equation in the estimation of LDL-C. Buddy SS et al. ALYSIA. 2013;310(19): 9517-1085 (http://education.[employer]faq/DLH718) CHOL/HDLC RATIO (test code = CHOL/HDLC RATIO) 5.4 {CALC} <5.0 NON HDL CHOLESTEROL (test code = NON HDL CHOLESTEROL) 164 {MG/DL C AL} <130 For patients with diabetes plus 1 major ASCVD risk factor, treating to a non-HDL-C goal of <100 mg/dL (LDL-C of <70 mg/dL) is considered a therapeutic option. [facility]] MICROALBUMIN, RANDOM URINE (W/CREATININE) 2017-11-22 09:05:00* Test Item Value Reference Range Interpretation Comments CREATININE, RANDOM URINE (test code = CREATININE, RANDOM URINE) 56 mg/dl 20-320 N MICROALBUMIN (test code = MICROALBUMIN) 0.3 mg/dl N Reference RangeNot established MICROALBUMIN/CREATININE RATIO, RANDOM UR INE (test code = MICROALBUMIN/CREATININE RATIO, RANDOM URINE) 5 {MCG/MG CRE} <30 N The ADA de fines abnormalities in albuminexcretion as follows: Category Result (mcg/mg creatinine) Normal <30Microalbuminuria 30-299 Clinical albuminuria > OR = 300 The ADA recommends that at least two of threespecimens collected within a 3-6 month period beabnormal before considering a patient to bewithin a diagnostic category. [facility]] CMP [id number] 09:05:00* Test Item Value Reference Range Interpretation Comments GLUCOSE; Above High Threshold (test code = 1547-9) 103 mg/dl 65- 99 Fasting reference interval For someone without known diabetes, a glucose valuebetween 100 and 125 mg/dL is consistent withprediabetes and should be confirmed with afollow-up test. UREA NITROGEN (BUN) (test code = UREA NITROGEN (BUN)) 15 mg/dl 7-25 N CREATININE (test code = CREATININE) 0.79 mg/dl 0.50-1.05 N For patients >49 years of age, the reference limitfor Creatinine is approximately 13% higher for peopleidentified as -[place]. eGFR NON- (test code = eGFR NON-GREG N SPANISH) 87 {ML/MIN/1.7} > OR = 60 N eGFR (test code = eGFR ) 10 0 {ML/MIN/1.7} > OR = 60 N BUN/CREATININE RATIO (test code = BUN/CREATININE RATIO) NOT APPLICA BLE 6-22 SODIUM (test code = SODIUM) 132 mmol/L 135-146 POTASSIUM (test code = POTASSIUM) 4.5 mmol/L 3.5-5.3 N CHLORIDE (test code = CHLORIDE) 96 mmol/L 98-110 CARBON DIOXIDE (test code = CARBON DIOXIDE) 29 mmol/L 20-31 N CALCIUM (test code = CALCIUM) 9.6 mg/dl 8.6-10.4 N PROTEIN, TOTAL (test code = PROTEIN, TOTAL) 6.4 g/dl 6.1-8.1 N ALBUMIN (test code = ALBUMIN) 4.2 g/dl 3.6-5.1 N GLOBULIN (test code = GLOBULIN) 2.2 {G/DL CALC} 1.9-3.7 N ALBUMIN/GLOBULIN RATIO (test code = ALBUMIN/GLOBULIN RATIO) 1.9 {CALC} 1.0-2.5 N BILIRUBIN, TOTAL; Normal (test code = 35646-7) 0.3 mg/dl 0.2-1.2 N ALKALINE PHSPHATASE (test code = ALKALINE PHSPHATASE) 104 u/l 33-130 N AST; Normal (test code = 1916-6) 22 u/l 10-35 N ALT; Above High Threshold (test code = 1742-6) 32 u/l 6-29 [facility]] TSH, 3RD GENERATION W/REFLEX TO FT4 2017-11-22 09:05:00* Test Item Value Reference Range Interpretation Comments TSH, 3RD GENERATION W/REFLEX TO FT4 (noel t code = TSH, 3RD GENERATION W/REFLEX TO FT4) 1.67 {MIU/L} N Reference Range > or = 20 Years 0.40-4.50 Ranges First trimester 0.26-2.66 Second trimester 0.55-2.73 Third trimester 0.43-2.91 [facility]] HEMOGLOBIN [id number] 09:05:00* Test Item Value Reference Range Interpretation Comments HEMOGLOBIN A1c; Above High Threshold (test code = 4548-4) 6.1 {% of total} <5.7 For someone without known diabetes, a he moglobin A1c value between 5.7% and 6.4% is consistent withprediabetes and should be confirmed with a follow-up test. For someone with known diabetes, a value <7%indicates that their diabetes is well controlled. [id number] should be individualized based on duration ofdiabetes, age, comorbid conditions, and otherconsiderations. This assay result is consistent with an increased riskof diabetes. Currently, no consensus exists regarding use ofhemoglobin A1c for diagnosis of diabetes for children. [facility]
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
[2020-09-22] MEDS ORDERED: IBUPROFEN 600 MG TAB PO ONE (08:07)
[2020-09-22] MEDS ORDERED: CLONIDINE HCL 0.1 MG TAB PO ONE (08:09)
--- NOTE | 2020-09-22 08:39 | Diagnostic Imaging Report ---
Chest, with left rib series, 09/22/2020. History: Left lateral chest wall pain. Comparison: 08/19/2018. Findings: The cardiomediastinal silhouette and pulmonary vasculature are within normal limits for a portable exam. There is no focal consolidation or pleural effusion. There is no evidence of pneumothorax or pulmonary contusion. Left-sided ribs are normal. There are no acute osseous or soft tissue abnormalities. Impression: No acute cardiopulmonary or left rib abnormality. Signed by: Declan Lowry on 09/22/2020 8:36 AM
[2020-09-22 09:22] VITALS: BP 159/87
== END 2020-09-22 09:26 | disposition home or self-care (01) ==
LOC: ER 07:43
DX: R07.89 Other chest pain (principal); Y93.I1 Activity, roller coaster riding; I10 Essential (primary) hypertension; F41.9 Anxiety disorder, unspecified; M79.7 Fibromyalgia
CPT/HCPCS: 71101; 93005; 99284